=== PATIENT | female | born 1960 | race African-American/Black ===

== ENCOUNTER 2017-07-22 20:21 | Emergency (ER) | payer MEDICAID ==
[~2017-07-22] VITALS: Ht 175.3 cm; Wt 70.8 kg
--- NOTE | 2017-07-22 21:30 | Emergency Room Report ---
History of Present Illness General Chief Complaint: General Complaint Source: Patient Present Illness HPI This is a 56-year-old female with a history urine prolapse. She has not had surgery. She present with 2 complaints. The main complaint is that she has some abdominal cramping with 2 episode diarrhea that started for the last couple days. Does have some dysuria. No fever or chills. No nausea no vomiting. She also complaining of urine prolapse his been ongoing for over a week. Similar symptom in the past. Denies any other complaint. Allergies: Coded Allergies: No Known Allergies (Unverified , 07/22/17) Patient History Past Medical History: see triage record, old chart reviewed Past Surgical History: other Pertinent Family History: none Social History: Denies: smoking Last Menstrual Period: 2004 Now: No : 3 Para: 1 Immunizations: other Reviewed Nursing Documentation: PMH: Agreed, PSxH: Agreed Nursing Documentation-PMH Hx Hypertension: Yes Review of Systems Eye: Denies: eye pain, blurred vision ENT: Denies: ear pain, nose congestion, throat swelling Respiratory: Denies: cough, shortness of breath Cardiovascular: Denies: chest pain, palpitations Gastrointestinal: Reports: abdominal pain, diarrhea, Denies: nausea, vomiting Musculoskeletal: Denies: back pain, joint pain Skin: Denies: rash Neurological: Denies: headache, numbness Endocrine: Denies: increased thirst, increased urine Hematologic/Lymphatic: Denies: easy bruising All Other Systems: negative except mentioned in HPI Physical Exam Vital Signs Date Time Temp Pulse Resp B/P (MAP) Pulse Ox O2 Delivery O2 Flow Rate FiO2 07/22/17 21:07 99.3 90 15 150/83 96 Room Air vitals with blood pressure Sp02 EP Interpretation: reviewed, normal General Appearance: well appearing, no apparent distress, alert Head: normocephalic, atraumatic Eyes: bilateral eye PERRL, bilateral eye EOMI ENT: hearing grossly normal, normal pharynx Neck: full range of motion, supple, no meningismus Respiratory: chest non-tender, lungs clear, normal breath sounds Cardiovascular #1: regular rate, rhythm, no murmur Gastrointestinal: normal bowel sounds, non tender, no mass, no organomegaly, no bruit, non-distended Genitourinary: deferred - Patient is in the hallway Musculoskeletal: back normal, gait/station normal, normal range of motion Neurologic: alert, oriented x3 Psychiatric: mood/affect normal Skin: warm/dry Medical Decision Making Diagnostic Impression: Primary Impression: Uterine prolapse Additional Impression: Abdominal pain Qualified Codes: R10.84 - Generalized abdominal pain ER Course She presents with uterine prolapse by history. This is a chronic issue. This may cause some dysuria. No evidence of infection. She sleeping comfortably here. Abdominal cramps may be secondary to diarrhea from early gastroenteritis. No evidence of acute abdomen. No evidence of abdominal pain here. We'll discharge home. Last Vital Signs Date Time Temp Pulse Resp B/P (MAP) Pulse Ox O2 Delivery O2 Flow Rate FiO2 07/22/17 21:07 99.3 90 15 150/83 96 Room Air Status: improved Disposition: HOME, SELF-CARE Condition: Stable Scripts Ibuprofen* (MOTRIN*) 600 Mg Tablet 600 MG ORAL Q8H Y for For Pain, #30 TAB 0 Refills Prov: MARA CLEMENTE M.D. 07/22/17 Additional Instructions: Followup with your DrNacho in 7 days. See a applications chemist for possible surgery. Return if worse. MARA CLEMENTE M.D. Jul 22, 2017 21:30
[2017-07-22 22:30] LABS: APPEARANCE,URINE CLEAR; KETONES,URINE NEGATIVE (NEGATIVE); LEUKOCYTE ESTERASE ,URINE 1+ (NEGATIVE); NITRITE,URINE NEGATIVE (NEGATIVE); PH,URINE 7 (4.5-8.0); PROTEIN,URINE NEGATIVE (NEGATIVE); UROBILINOGEN,URINE 4 MG/DL (0.0-1.0)
[2017-07-22 22:50] LABS: BACTERIA,URINE FEW /HPF; RBC,URINE 0-2 /HPF (0 - 2); SQUAMOUS EPITHELIAL CELL,UR FEW /LPF (NONE/OCC)
[2017-07-22] MEDS ORDERED: IBUPROFEN600 MG ORAL (23:11)
[2017-07-22 23:28] VITALS: BP 145/67
[2017-07-22 23:33] VITALS: BP 145/67
== END 2017-07-22 23:30 | disposition home or self-care (01) ==
LOC: EMR 21:30
DX: N81.4 Uterovaginal prolapse, unspecified (principal); R10.9 Unspecified abdominal pain
CPT/HCPCS: 81003; 99283